=== PATIENT | female | born 1955 | race Caucasian/White ===

== ENCOUNTER → 2022-07-22 | Outpatient (CLI) | payer BC, MEDICARE ==
--- NOTE | 2022-07-23 06:12 | MR ---
EXAMINATION TYPE: MR wrist RT wo con DATE OF EXAM: 07/22/2022 COMPARISON: None HISTORY: Right wrist pain, swelling, limited movement Multiplanar multiecho imaging of the right wrist performed with no contrast. There is narrowing of the radiocarpal joint space. There is increased fluid signal in the distal ulna and the lunate with degenerative cyst formation. There is some edema in the distal scaphoid bone. Th ere is mild edema in the trapezium. The collateral ligaments are intact. There is mild increased sign al within the triangular cartilage. There is soft tissue edema around the radial side of the carpus and around the flexor carpi radialis tendon. 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 Multiple areas of degenerative cyst formation and bone edema. No evidence of ligamentous or tendon tear. There is tear of the triangular cartilage. No fracture seen. There is edema around the flexor carpi radialis tendon consistent with tendinitis.
== END | disposition home or self-care (01) ==
LOC: RADMRIMAIN 10:48
PROVIDERS: ATTEND Orthopaedic Surgery Hand Surgery
DX: M25.531 Pain in right wrist (principal)

== ENCOUNTER → 2022-10-08 | Outpatient (CLI) | payer MEDICARE ==
[2022-10-09 11:07] LABS: ALT 33 U/L (8-44); AST 47 U/L (13-35); Chol/HDL Ratio 2.15 Ratio; LDL Cholesterol,Calculated 94.4 mg/dL (0.0-131.0)
== END | disposition home or self-care (01) ==
LOC: LABWHC1 08:06
PROVIDERS: ATTEND Nurse Practitioner Adult Health
DX: E78.2 Mixed hyperlipidemia (principal)
CPT/HCPCS: 36415; 80061; 84450; 84460